=== PATIENT | female | born 1935 | race Asian ===

== ENCOUNTER 2017-09-10 00:31 | Day surgery (SDC) | payer MEDICARE, OTHER ==
[~2017-09-10 00:31] MED LIST: ABAT250V IV; ALEN70 PO; Aspir 8181 MG PO; CHOL10002 PO; FISH1000 PO; GABA300; HYDSUL200 PO; INFLECTRA100 MG IV; LISI20 PO; MULT50L; Micro-K10 MEQ; Triamterene W/1 EACH
[2018-03-07] MEDS ORDERED: HYDR1TAB94 PO (08:48)
== END 2017-09-10 11:11 | disposition home or self-care (01) ==
LOC: ATC 00:31
DX: M05.79 Rheumatoid arthritis with rheumatoid factor of multiple sites without organ or systems involvement (principal); R73.09 Other abnormal glucose; Z79.899 Other long term (current) drug therapy
CPT/HCPCS: 96413; 96415; J7050; Q5102-ZB

== ENCOUNTER 2017-10-22 00:17 | Day surgery (SDC) | payer MEDICARE, OTHER ==
[2017-10-22 09:16] LABS: BASOPHILS ABSOLUTE AUTO 0.03 K/mm3 (0.00-0.23); BASOPHILS PERCENT AUTO 1 % (0-2); EOSINOPHILS ABSOLUTE AUTO 0.01 K/mm3 (0.00-0.68); EOSINOPHILS PERCENT AUTO 0 % (0-6); Hematocrit 40.8 % (33.0-51.0); Hemoglobin 13.2 g/dL (11.5-16.0); IMMATURE GRAN ABSOLUTE AUTO 0.02 K/mm3 (0.00-0.10); IMMATURE GRAN PERCENT AUTO 1 % (0-1); LYMPHOCYTES ABSOLUTE AUTO 1.67 K/mm3 (0.84-5.20); LYMPHOCYTES PERCENT AUTO 40 % (21-46); MONOCYTES PERCENT AUTO 10 % (4-13); Mean Corpuscular HGB Conc 32.4 g/dL (31.5-36.5); Mean Corpuscular Volume 93 fL (80-100); Mean Platelet Volume 10.4 fL (9.1-12.4); NEUTROPHILS ABSOLUTE AUTO 2.03 K/mm3 (1.96-9.15); NEUTROPHILS PERCENT AUTO 49 % (41-73); Platelet Count 143 K/mm3 (150-400); RDW Coefficient Variation 14.4 % (11.7-14.2); White Blood Cell Count 4.16 K/mm3 (4.00-11.30)
[2017-10-22 09:46] LABS: Albumin, Blood 3.6 g/dL (3.4-5.0); Bilirubin, Total 0.5 mg/dL (0.1-1.0); Bun/Creatinine Ratio 14.8 (12.0-20.0); Calcium, Blood 8.6 mg/dL (8.5-10.1); Creatinine, Blood 1.28 mg/dL (0.40-1.00); Globulin, Blood 3.7 g/dL (2.2-4.0); Potassium, Blood 3.9 mmol/L (3.5-5.5); Total Protein, Blood 7.3 g/dL (6.4-8.2)
[2018-03-07] MEDS ORDERED: HYDR1TAB94 PO (08:48)
== END 2017-10-22 11:42 | disposition home or self-care (01) ==
LOC: ATC 00:17
PROVIDERS: Internal Medicine Rheumatology
DX: M05.79 Rheumatoid arthritis with rheumatoid factor of multiple sites without organ or systems involvement (principal)
CPT/HCPCS: 80053; 85025; 96413; 96415; J7050; Q5102-ZB

== ENCOUNTER 2017-12-12 01:13 | Day surgery (SDC) | payer MEDICARE, OTHER | END 2017-12-12 11:06 | disposition home or self-care (01) | LOC: ATC 01:13 | DX: M05.79 Rheumatoid arthritis with rheumatoid factor of multiple sites without organ or systems involvement (principal) | CPT/HCPCS: 96413; 96415; J7050; Q5103 ==

== ENCOUNTER 2018-04-19 00:30 | Day surgery (SDC) | payer MEDICARE, OTHER ==
[~2018-04-19 00:30] MED LIST changes: +HYDR1TAB94 PO
== END 2018-04-19 11:21 | disposition home or self-care (01) ==
LOC: ATC 00:30
DX: M05.79 Rheumatoid arthritis with rheumatoid factor of multiple sites without organ or systems involvement (principal)
CPT/HCPCS: 96413; 96415; J7050; Q5103

== ENCOUNTER 2018-05-31 00:20 | Day surgery (SDC) | payer MEDICARE, OTHER ==
[2018-05-31 09:09] LABS: BASOPHILS ABSOLUTE AUTO 0.02 K/mm3 (0.00-0.23); BASOPHILS PERCENT AUTO 1 % (0-2); EOSINOPHILS ABSOLUTE AUTO 0.15 K/mm3 (0.00-0.68); EOSINOPHILS PERCENT AUTO 4 % (0-6); Hematocrit 39.3 % (33.0-51.0); IMMATURE GRAN ABSOLUTE AUTO 0.03 K/mm3 (0.00-0.10); IMMATURE GRAN PERCENT AUTO 1 % (0-1); LYMPHOCYTES ABSOLUTE AUTO 1.63 K/mm3 (0.84-5.20); LYMPHOCYTES PERCENT AUTO 39 % (21-46); MONOCYTES ABSOLUTE AUTO 0.52 K/mm3 (0.16-1.47); MONOCYTES PERCENT AUTO 12 % (4-13); Mean Corpuscular HGB 30.7 pg (26.0-34.0); Mean Corpuscular HGB Conc 33.1 g/dL (31.5-36.5); Mean Corpuscular Volume 93 fL (80-100); Mean Platelet Volume 10.4 fL (9.1-12.4); NEUTROPHILS ABSOLUTE AUTO 1.87 K/mm3 (1.96-9.15); NEUTROPHILS PERCENT AUTO 44 % (41-73); Platelet Count 156 K/mm3 (150-400); RDW Coefficient Variation 13.4 % (11.7-14.2); RDW Standard Deviation 45.9 fL (35.1-46.3); Red Blood Cell Count 4.24 M/mm3 (3.80-5.20); White Blood Cell Count 4.22 K/mm3 (4.00-11.30)
[2018-05-31 09:56] LABS: Albumin, Blood 3.5 g/dL (3.4-5.0); Bilirubin, Total 0.6 mg/dL (0.1-1.0); Bun/Creatinine Ratio 13.2 (12.0-20.0); Calcium, Blood 8.3 mg/dL (8.5-10.1); Creatinine, Blood 1.36 mg/dL (0.40-1.00); Globulin, Blood 3.5 g/dL (2.2-4.0); Potassium, Blood 4.2 mmol/L (3.5-5.5)
== END 2018-05-31 11:07 | disposition home or self-care (01) ==
LOC: ATC 00:20
PROVIDERS: Internal Medicine Rheumatology
DX: M05.79 Rheumatoid arthritis with rheumatoid factor of multiple sites without organ or systems involvement (principal)
CPT/HCPCS: 80053; 85025; 96413; 96415; J7050; Q5103

== ENCOUNTER 2018-07-05 01:10 | Day surgery (SDC) | payer MEDICARE, OTHER | END 2018-07-05 11:04 | disposition home or self-care (01) | LOC: ATC 01:10 | DX: M05.79 Rheumatoid arthritis with rheumatoid factor of multiple sites without organ or systems involvement (principal) | CPT/HCPCS: 96413; 96415; J7050; Q5103 ==

== ENCOUNTER 2018-09-11 00:15 | Day surgery (SDC) | payer MEDICARE, OTHER ==
[~2018-09-11 00:15] MED LIST changes: -CHOL10002 PO; +D3-20002000 UNIT PO; +FISH OIL 1,0001 EAC1 PO; -FISH1000 PO
== END 2018-09-11 11:09 | disposition home or self-care (01) ==
LOC: ATC 00:15
DX: M06.9 Rheumatoid arthritis, unspecified (principal); Z79.899 Other long term (current) drug therapy
CPT/HCPCS: 96413; 96415; J7050; Q5103

== ENCOUNTER 2018-10-09 00:06 | Day surgery (SDC) | payer MEDICARE, OTHER | END 2018-10-09 11:46 | disposition home or self-care (01) | LOC: ATC 00:06 | DX: M05.79 Rheumatoid arthritis with rheumatoid factor of multiple sites without organ or systems involvement (principal); Z79.82 Long term (current) use of aspirin; Z79.899 Other long term (current) drug therapy; E78.5 Hyperlipidemia, unspecified | CPT/HCPCS: 96413; 96415; J7050; Q5103 ==

== ENCOUNTER 2018-10-25 09:54 | Inpatient (IN) | payer MEDICARE, OTHER ==
[~2018-10-25] VITALS: Ht 154.9 cm; Wt 53.4 kg
[~2018-10-25 09:54] MED LIST changes: -Acetaminophen-1 EAC1 PO; -Amoxicillin500 M1; -BUME2 PO; -GABA300 PO; -HYDR1TAB94; -Hydromet Syrup473 ML PO; -INFLECTRA100 MG; -LORA.5 PO; -METO25ER PO; -MIRT15 PO; -Micro-K10 MEQ PO; -Once Daily1 EACH PO; -PREG50 PO
[2018-10-25] MEDS ORDERED: Amoxicillin500 M1 (11:34)
[2018-10-25] MEDS ORDERED: Acetaminophen-1 EAC1 PO (11:34)
[2018-10-25] MEDS ORDERED: GABA300 PO (11:35)
[2018-10-25] MEDS ORDERED: Hydromet Syrup473 ML PO (11:35)
[2018-10-25] MEDS ORDERED: INFLECTRA100 MG (11:36)
[2018-10-25] MEDS ORDERED: PREG50 PO (11:37)
[2018-10-25 15:33] LABS: Bun/Creatinine Ratio 33.9 (12.0-20.0); Calcium, Blood 8.9 mg/dL (8.5-10.1); Creatinine, Blood 1.12 mg/dL (0.40-1.00); Potassium, Blood 4.5 mmol/L (3.5-5.5)
--- NOTE | 2018-10-25 17:30 | NUR ---
PT ARRIVED TO PCU 9 VIA GURNEY, SHE IS ABLET TO STAND AND TRANSFER TO BED EASILY. A/OX3, LUNGS ARE CLEAR IN UPPER TURNER, VERY DIM IN RIGHT BASE, SLIGHTLY DIM IN LEFT BASE, RESP EVEN AND UNLABORD, SATS ARE IN THE HIGH 90'S, SHE HAS A DRY HACKING COUGH, HRR, TELE IN PLACE RUNNIGN SR WITH LOUD MURMUR, 3+ EDEMA NOTED TO B/L LE, PPP FAINT, CAP REFILL <3SEC, VS STABLE, AFEBRILE, IV SITE TO RAC, SITE IS CLEAR AND PATENT, BTX4, ABD FLAT SOFT NONTENDER, VOIDS WITHOUT DIFF, SKIN C/W/D, MAEW, GERALD, CALL LIGHT IN REACH. ORIENTED TO ROOM LAYOUT CALL SYSTEM, CALL LIGHT IN REACH.
--- NOTE | 2018-10-25 19:45 | NUR ---
PM NOTE. ASSUMED CARE OF PT APROX 1900, PT IS A&O AND SBA IN THE ROOM. PT WAS ADMITTED DUE TO NEW ONSET CHF. THIS RN WAS NOTIFED THAT PT HAD CONVERTED FROM NSR TO AFIB IN THE 110-140'S. TELE INTACT, AFIB, PT'S BP 102/67. PT HAS 3+ PITTING EDEMA TO THE BLE. L/S CLEAR IN THE UPPER LOBES BUT FINE CRACKELS ARE HEARD IN THE RIGHT MID AND BILATERAL BASES. PT HAS OCC NON-PRODUCTIVE, DRY COUGH. PT O2 STATS ARE >90% ON RA. PT'S BT PRESENT AND HYPOACTIVE ABD IS SOFT AND NONTENDER TO PALP. CALL LIGHT IN REACH, BED IS LOCKED AND LOW WILL CONTINUE TO MONITOR.
--- NOTE | 2018-10-25 22:47 | NUR ---
PT UPDATE... PROVIDER WAS CALLED DUE APPARENT NEW ONSET AFIB. ORDERS WERE OBTAINED.
[2018-10-26 04:26] LABS: Albumin, Blood 3.3 g/dL (3.4-5.0); Anion Gap 13 mmol/L (6-16); Blood Urea Nitrogen 40 mg/dL (8-24); Bun/Creatinine Ratio 28.6 (12.0-20.0); CO2, Blood 23 mmol/L (21-32); Calcium, Blood 8.7 mg/dL (8.5-10.1); Chloride, Blood 96 mmol/L (98-108); Glomerular Filtration Rate 38 (60-); Glucose, Blood 109 mg/dL (70-99); Phosphorus, Blood 4.7 mg/dL (2.5-4.9); Potassium, Blood 3.8 mmol/L (3.5-5.5); Sodium, Blood 132 mmol/L (136-145)
--- NOTE | 2018-10-26 06:28 | NUR ---
SHIFT SUMMARY. NO ACUTE CHANGES NOTED SINCE PRIOR NOTES, PT IS STILL IN AFIB IN THE 100'S-110'S. PT DENIES CHEST PAIN PRESSURE, SOB OR N/V. PT STILL HAS DRY, NONPRODUCTIVE COUGH. PT CALL APROP. CALL LIGHT IN REACH, BED IS LOCKED AND LOW WILL CONTINUE TO MONITOR.
--- NOTE | 2018-10-26 08:02 | NUR ---
pt laying in bed awake a/ox3, pleasant and cooperative with care, follows commands well, denies pain and sob, states she feels good. she did convert to afib last night early in the night. rate in the 90's at this time. lungs are clear in upper brasher, dim in mid field, and bases, with some fine crackles in bases, resp even and unlabored, no cough noted, hrirr, loud murmur noted, 3+ pitting edema noted to b/l le, pp faint, cap refill <3sec, vs stable, afebrile, iv site is clear and patent, btx4, abd flat soft nontender, voids without diff, skin c/w/d, maew, antonieta, call light in reach. went down for cxray via wheelchair this am.
--- NOTE | 2018-10-26 13:30 | NUR ---
Dr. Salcido spoke with pt and her spouce about need for valve replacement, pt became very emotionally upset with news. attempted to offer encouragment, but she put her hands over her face. no further changes. call light in reach.
--- NOTE | 2018-10-26 18:45 | NUR ---
pt resting in bed after sitting in the chair for a few hrs, her spouce is in room, no further changes, she is in better spirits this evening. call light in reach.
--- NOTE | 2018-10-26 19:37 | NUR ---
PM NOTE. ASSUMED CARE OF PT APROX 1900, PT IS A&O AND IND/SBA IN THE ROOM. PT WAS ADMITTED FOR NEW ONSET CHF, PT WAS TOLD BY CREATIVE INTERN TODAY THAT SHE IS GOING TO NEED A VALVE REPLACED, PT AND WERE VERY EMOTIONAL ABOUT THIS INFORMATION. THIS RN PROVIDED THERAPUTIC COMMUNICATION AND EDUCATION ABOUT THIS TOPIC. PT TOLD THIS RN THAT THIS NEW DEVELOPMENT HAS CAUSED HER SEVERE EMOTIONAL STRESS AND SHE HAS DEVELOPED DIARRHEA, PT STATES THIS IS NORMAL FOR HER DURING TIMES OF HIGH STRESS. TELE INTACT, NSR IN THE 60'S PER RADAR SYSTEMS ENGINEER, PT'S BP 102/65. PT HAS 3+ EDEMA TO HER RLE W/FAINT PEDAL PULSE AND 2+ TO HER LLE. PT L/S: FINE CRACKELS TO RIGHT UPPER,MID AND LOWER LOBE AND IN THE LEFT LOWER LOBE, LEFT UPPER LOBE IS CLEAR. PT IS >90% ON RA W/DRY, NONPRODUCTIVE COUGH. BT PRESENT AND HYPERACTIVE, ABD IS SOFT AND NONTENDER TO PALP. CALL LIGHT IN REACH, BED IS LOCKED AND LOW WILL CONTINUE TO MONITOR.
--- NOTE | 2018-10-27 06:28 | NUR ---
SHIFT SUMMARY. AT 0052 PT CONVERTED FROM NSR TO AFIB 100'S TO 120'S, AT 0420 PT CONVERTED BACK TO NSR. PT WAS NOT SYMPTOMATIC DURING THIS TIME. PT WAS GIVEN 1 DOSE OF IMMODIUM FOR FREQUENT DIARRHEA WITH GOOD RESULTS, PT STATES THAT THE DIARREAH IS DUE TO STRESS AND A HIGH EMOTIONAL STATE DUE TO RECENT NEWS OF A NEEDED VALVE REPLACEMENT. PT'S VS HAVE BEEN STABLE T/O SHIFT. NO OTHER ACUTE CHANGES NOTED. CALL LIGHT IN REACH, BED IS LOCKED AND LOW WILL CONTINUE TO MONITOR UNTIL REPORT IS GIVEN TO ONCOMING RN.
[2018-10-27 08:16] LABS: Bun/Creatinine Ratio 31.3 (12.0-20.0); Calcium, Blood 8.3 mg/dL (8.5-10.1); Creatinine, Blood 1.5 mg/dL (0.40-1.00); Potassium, Blood 3.6 mmol/L (3.5-5.5)
--- NOTE | 2018-10-27 10:01 | NUR ---
AFIB PT ARRYTHMIA CHANGED TO AFIB. PT HAS STANDING DISCHARGE HOME ORDERS. CALLED DR BRITT CELL PHONE AND LEFT A MESSAGE ASKING FOR CLARIFICATION ON CONTINUED DISCHARGE HOME. CONTINUE POT.
--- NOTE | 2018-10-27 10:56 | NUR ---
DR EDDI BRITT REQUESTED A CONSULT FROM DR MONTAGUE FOR ANTI COAGULATION AND ARRYTHMIA. PAGED DR ASUTIN. SHE TALKED WITH DR GALDAMEZ WHO WAS NEXT TO HER. ORDER FOR XARELTO AND AMIODORONE RECEIVED. CONTINUE POT.
--- NOTE | 2018-10-27 18:44 | NUR ---
EVENING NOTE PT ALERT AND VERY ANXIOUS ABOUT TOMORROW ANGIOGRAM. PT REQUESTED A SLEEPING PILL. CALL SCHEDULE SAYS DR PERALTA IS ON. CALLED THE ANSWERING SERVICE THEY STATED IT IS THE HOSPITALIST ON. WAITING UNTIL 1899 TO CALL. PT HAS NEVER USED A SLEEPING PILL. LEFT FA IV INFILTRATED. REMOVED. RESTARTED PER ULTRA SOUND RIGHT UE. CALLED PHARMACY TO ALERT THEM OF STOPPING THE HEPARIN GTT. RECALLED TO LET TOO [facility] KNOW OF RESTART. NO NEW ORDERS RECEIVED. RESUME AT PREVIOUS RATE/DOSE. CONTINUE POT.
--- NOTE | 2018-10-27 20:08 | NUR ---
PM NOTE. ASSUMED CARE OF PT APROX 1900, PT IS A&O AND SBA DUE TO IV POLE. PT IS SCHEDULED TO HAVE AN ANGIO IN THE AM AND IS TO BE NPO AFTER MIDNIGHT. PT IS VERY ANXIOUS ABOUT THIS PROCEDURE, PT STATES SHE IS AFRAID NOT "NOT WAKING UP AND DYING ON THE TABLE." TELE INTACT, NSR IN THE 60'S PER FITTER TACKER, PT HAS BEEN FILLPING IN AND OUT OF AFIB MOST OF TODAY BUT HAS BEEN NSR SINCE 182. PT'S BP 104/60. PT HAS 2+ PITTING EDEMA TO THE BLE. PT'S L/S HAVE IMPROVED SINCE LAST NOC SHIFT BUT STILL HAVE FINE CRACKELS IN THE RIGHT MID AND LOWER LOBES. BT PRESENT AND HYPERACTIVE, ABD IS SOFT AND NONTENDER TO PALP. CALL LIGHT IN REACH, BED IS LOCKED AND LOW WILL CONTINUE TO MONITOR.
--- NOTE | 2018-10-27 22:46 | NUR ---
PT UPDATE... PT CALLED AND STATED SHE WAS VERY NAUSEOUS, PT HAD A RECENT LAB DRAW THAT WAS VERY PAINFUL TO THE PT AND SHE FEELS THIS WAS THE CAUSE. PROVIDER WAS CALLED AND ORDERS OBTAINED, PT WAS MEDICATED PER ORDERS. WILL MONITOR.
--- NOTE | 2018-10-28 01:30 | NUR ---
PT UPDATE... AT 0005 PT'S BP WAS 73/41 W/HR OF 54. PT WAS LETHARGIC AND HARD TO WAKE UP. PT HAD RECEIVED METOPROLOL 25 MG, AND 7.5 MG OF RESTORIL AT 2330. A 250ML BOLUS WAS GIVEN, PT'S BP AT 0050 AFTER BOLUS WAS 77/43 W/HR OF 51. PROVIDER WAS CALLED AND ORDERS OBTAINED FOR ANOTHER 250ML BOLUS. AFTER THE 2ND 250ML BOLUS THE PT'S BP WAS 86/54 W/HR OF 53. AT 0145 PT'S HR WAS 76/51 W/ HR OF 58 AND RR OF 28 AND PT WAS LETHARGIC AND CONFUSED. PROVIDER WAS CALLED AND ORDERS WERE OBTAINED TO TRANSFER TO ICU. 5 MINS AFTER PROVIDER GAVE ORDERS TO TRANSFER TO ICU PT WOKE UP SPONTANIOUSLY, SHE WAS CONFUSED, SCARED AND CRYING OUT, PT WAS ORIENTED ONLY TO SELF. THERAPUTIC COMMUNICATION WAS PROVIDED TO PT AND SHE CALMED DOWN. VS WERE DONE AT THIS TIME: 97/58, HR 59, RR 23 TEMP 97.7. PROVIDER WAS CALLED AND UPDATED, IT WAS DECIDED THAT THE PT SHOULD STAY PCU STATUS WITH CLOSE MONITORING.
[2018-10-28 05:13] LABS: BASOPHILS ABSOLUTE AUTO 0.03 K/mm3 (0.00-0.23); BASOPHILS PERCENT AUTO 1 % (0-2); EOSINOPHILS ABSOLUTE AUTO 0.09 K/mm3 (0.00-0.68); EOSINOPHILS PERCENT AUTO 2 % (0-6); Hematocrit 37.9 % (33.0-51.0); Hemoglobin 12.6 g/dL (11.5-16.0); IMMATURE GRAN ABSOLUTE AUTO 0.03 K/mm3 (0.00-0.10); IMMATURE GRAN PERCENT AUTO 1 % (0-1); LYMPHOCYTES ABSOLUTE AUTO 1.54 K/mm3 (0.84-5.20); LYMPHOCYTES PERCENT AUTO 26 % (21-46); MONOCYTES ABSOLUTE AUTO 0.66 K/mm3 (0.16-1.47); MONOCYTES PERCENT AUTO 11 % (4-13); Mean Corpuscular HGB 31.1 pg (26.0-34.0); Mean Corpuscular HGB Conc 33.2 g/dL (31.5-36.5); Mean Platelet Volume 10.2 fL (9.1-12.4); NEUTROPHILS ABSOLUTE AUTO 3.48 K/mm3 (1.96-9.15); NEUTROPHILS PERCENT AUTO 60 % (41-73); Platelet Count 260 K/mm3 (150-400); RDW Coefficient Variation 13.9 % (11.7-14.2); RDW Standard Deviation 47.8 fL (35.1-46.3); Red Blood Cell Count 4.05 M/mm3 (3.80-5.20); White Blood Cell Count 5.83 K/mm3 (4.00-11.30)
[2018-10-28 05:17] LABS: Mean Corpuscular Volume 94 fL (80-100)
[2018-10-28 05:39] LABS: Albumin, Blood 3.4 g/dL (3.4-5.0); Anion Gap 14 mmol/L (6-16); Blood Urea Nitrogen 52 mg/dL (8-24); Bun/Creatinine Ratio 29.4 (12.0-20.0); CO2, Blood 23 mmol/L (21-32); Calcium, Blood 8.5 mg/dL (8.5-10.1); Chloride, Blood 98 mmol/L (98-108); Creatinine, Blood 1.77 mg/dL (0.40-1.00); Glomerular Filtration Rate 28 (60-); Glucose, Blood 111 mg/dL (70-99); Phosphorus, Blood 5.7 mg/dL (2.5-4.9); Potassium, Blood 3.6 mmol/L (3.5-5.5); Sodium, Blood 135 mmol/L (136-145)
[2018-10-28 05:41] LABS: Anion Gap 13 mmol/L (6-16); Blood Urea Nitrogen 52 mg/dL (8-24); Bun/Creatinine Ratio 29.5 (12.0-20.0); CHOL/HDL RATIO 2.4; CO2, Blood 23 mmol/L (21-32); Calcium, Blood 8.5 mg/dL (8.5-10.1); Chloride, Blood 98 mmol/L (98-108); Cholesterol 127 mg/dL (50-200); Creatinine, Blood 1.76 mg/dL (0.40-1.00); Glomerular Filtration Rate 28 (60-); Glucose, Blood 107 mg/dL (70-99); HDL Cholesterol 53 mg/dL (>39); LDL/HDL RATIO 1.1; Low Density Lipoprotein Chol 59 mg/dL (0-110); Potassium, Blood 3.6 mmol/L (3.5-5.5); Sodium, Blood 134 mmol/L (136-145); Triglycerides 77 mg/dL (30-160); Very Low Density Lipoprot Chol 15 mg/dL (6-32)
--- NOTE | 2018-10-28 05:47 | NUR ---
SHIFT SUMMARY. NO ACUTE CHANGES NOTED SINCE PREVIOUS NOTES. PT'S MENTATION HAS CLEARED AND IS NOT CONFUSED AT THIS TIME. PT STILL HAS HEPARIN GTT AT 15 U/KG/HR AND 16.5 MLS/HR WITH A DOSE WT OF 55 KG. PT DENIES ANY CHEST PAIN/PRESSURE, N/V OR SOB. WILL CONTINUE TO MONITOR UNTIL REPORT IS GIVEN TO ONCOMING RN. BED ALARM IS ON.
--- NOTE | 2018-10-28 11:53 | NUR ---
Am note Pt resting. angiogram delayed d/t facility being on back up power. Pt very scared and anxious. She has been making statements about "giving up." Dr De La Vega called [facility] after canceling this am Angiogram. Reordred heparin gtt and planning to do the angiogram tomorrow. Talked with pt . Lollyf relates that pt has not been eating well at home for several months. No real interest in anything. He denied depression. Continue pot.
[2018-10-29 04:11] LABS: BASOPHILS ABSOLUTE AUTO 0.02 K/mm3 (0.00-0.23); BASOPHILS PERCENT AUTO 0 % (0-2); EOSINOPHILS ABSOLUTE AUTO 0.04 K/mm3 (0.00-0.68); EOSINOPHILS PERCENT AUTO 1 % (0-6); Hematocrit 37.2 % (33.0-51.0); Hemoglobin 12.5 g/dL (11.5-16.0); IMMATURE GRAN ABSOLUTE AUTO 0.04 K/mm3 (0.00-0.10); IMMATURE GRAN PERCENT AUTO 1 % (0-1); LYMPHOCYTES ABSOLUTE AUTO 1.44 K/mm3 (0.84-5.20); LYMPHOCYTES PERCENT AUTO 24 % (21-46); MONOCYTES ABSOLUTE AUTO 0.63 K/mm3 (0.16-1.47); MONOCYTES PERCENT AUTO 10 % (4-13); Mean Corpuscular HGB 30.9 pg (26.0-34.0); Mean Corpuscular HGB Conc 33.6 g/dL (31.5-36.5); Mean Corpuscular Volume 92 fL (80-100); Mean Platelet Volume 10.4 fL (9.1-12.4); NEUTROPHILS ABSOLUTE AUTO 3.86 K/mm3 (1.96-9.15); NEUTROPHILS PERCENT AUTO 64 % (41-73); Platelet Count 248 K/mm3 (150-400); RDW Standard Deviation 46.5 fL (35.1-46.3); Red Blood Cell Count 4.05 M/mm3 (3.80-5.20); White Blood Cell Count 6.03 K/mm3 (4.00-11.30)
[2018-10-29 05:02] LABS: Albumin, Blood 3.4 g/dL (3.4-5.0); Anion Gap 14 mmol/L (6-16); Blood Urea Nitrogen 60 mg/dL (8-24); Bun/Creatinine Ratio 30.8 (12.0-20.0); CO2, Blood 21 mmol/L (21-32); Calcium, Blood 8.6 mg/dL (8.5-10.1); Chloride, Blood 98 mmol/L (98-108); Creatinine, Blood 1.95 mg/dL (0.40-1.00); Glomerular Filtration Rate 25 (60-); Glucose, Blood 81 mg/dL (70-99); Phosphorus, Blood 6.4 mg/dL (2.5-4.9); Potassium, Blood 3.8 mmol/L (3.5-5.5); Sodium, Blood 133 mmol/L (136-145)
[2018-10-29 05:14] LABS: Bun/Creatinine Ratio 30.8 (12.0-20.0); Creatinine, Blood 1.95 mg/dL (0.40-1.00); Potassium, Blood 3.8 mmol/L (3.5-5.5)
[2018-10-29 05:15] LABS: Calcium, Blood 8.6 mg/dL (8.5-10.1)
--- NOTE | 2018-10-29 05:22 | NUR ---
SHIFT SUMMARY PT A&O X4, INDEPENDENT IN ROOM. PT C/O NAUSEA THAT SHES STATES RELATION TO "NERVES" D/T UPCOMING CATH PROCEDURE. PT PROVIDED W/ COMFORT AND ZOFRAN PER PT REQUEST & EMAR ORDERS. LUNG SOUNDS CLEAR, DIM IN BASES. SPO2 > 92% ON RA. MONITOR SHOWS INTERMITTENT AFIB/NSR T/O SHIFT W/ HR 60'S-90'S. PT HAS BEEN NPO AFTER MIDNIGHT FOR POSSIBLE CATH TODAY. HEPARIN GTT INFUSING PER ORDERS. WILL CONTINUE TO MONITOR AND PROVIDE CARE UNTIL REPORT OFF TO DAY SHIFT RN.
--- NOTE | 2018-10-29 07:45 | NUR ---
INITIAL ASSESSMENT: Pt sitting up in bed talking with physician. Pt tearful at times and seems depressed. States "I don't want to live like this". Physicain and RN provided encouragement, stating with treatment she would not be living like this. Pt at bedside and also tearful at times. LS diminished in bases, HR irregular with prominant murmur heard. BT positive. PUlses palp. Pt denies CP, SOB or needs. Call light in reach. Will monitor.
--- NOTE | 2018-10-29 17:48 | NUR ---
SHIFT SUMMARY: Pt appears to be sleeping comfortably at this time. at bedside. Pt has seemed depressed and anxious about her condition this shift. Provided verbal encouragement frequently throughout the shift. Pt stated "thank you for listening" at one point. Pt has been having diarrhea this shift, likely from stress (per pt and her ). Treated with imodium. Pt has had very little intake dispite encouragement to eat. Pt seems to be having dry heaves any time she needs to take medications or trys to eat. She was medicated with zofran per orders. Recieved her NS this AM and labs ordered for tomorrow. NPO after midnight. WIll report to night RN.
--- NOTE | 2018-10-29 19:30 | NUR ---
ASSUMED CARE PT RESTING IN ROOM COMFORTABLY. PT DAY SHIFT PT HAS BEEN DEPRESSED WITH TEARFUL AFFECT T/O DAY RELATED TO CURRENT ILLNESS. DAY SHIFT REPORTS PT HAS BEEN TEARFUL AND EXPRESSING FEAR AT DIAGNOSIS. PT DENIES ANY PAIN BUT REPORTS NAUSEA AND DIARRHEA. PT HAS BEEN MEDICATED FOR DIARRHEA PRIOR TO SHIFT CHANGE. WILL MEDICATE FOR NAUSEA. PT REPORTS NOT ABLE TO VOMIT, BUT HAS DRY HEAVES. PER DAY SHIFT PT HAS NOT HAD MUCH OF AN APPETITE LAST 2 DAYS. PT TO BE NPO AFTER MIDNIGHT FOR ANGIO IN THE AM IF RENAL FUNCTION IMPROVES. SPOUSE AT BEDSIDE. CALL LIGHT IN REACH.
--- NOTE | 2018-10-29 20:37 | NUR ---
PHARMACY CALLED SPOKE WITH PHARMACIST ABOUT NEW APTT VALUE OF 106.4. NO ORDERS FOR TITRATION RECEIVED AT THIS TIME. HUMAN RESOURCES TEMP NOTIFIED OF CRITICAL VALUE WELL.
[2018-10-30 04:16] LABS: BASOPHILS ABSOLUTE AUTO 0.01 K/mm3 (0.00-0.23); BASOPHILS PERCENT AUTO 0 % (0-2); EOSINOPHILS PERCENT AUTO 0 % (0-6); Hematocrit 36.8 % (33.0-51.0); Hemoglobin 12.3 g/dL (11.5-16.0); IMMATURE GRAN ABSOLUTE AUTO 0.04 K/mm3 (0.00-0.10); IMMATURE GRAN PERCENT AUTO 1 % (0-1); LYMPHOCYTES PERCENT AUTO 23 % (21-46); MONOCYTES ABSOLUTE AUTO 0.59 K/mm3 (0.16-1.47); MONOCYTES PERCENT AUTO 10 % (4-13); Mean Corpuscular HGB 31.2 pg (26.0-34.0); Mean Corpuscular HGB Conc 33.4 g/dL (31.5-36.5); Mean Corpuscular Volume 93 fL (80-100); Mean Platelet Volume 10.5 fL (9.1-12.4); NEUTROPHILS ABSOLUTE AUTO 4.02 K/mm3 (1.96-9.15); NEUTROPHILS PERCENT AUTO 66 % (41-73); Platelet Count 204 K/mm3 (150-400); RDW Coefficient Variation 14.1 % (11.7-14.2); RDW Standard Deviation 47.8 fL (35.1-46.3); Red Blood Cell Count 3.94 M/mm3 (3.80-5.20); White Blood Cell Count 6.06 K/mm3 (4.00-11.30)
[2018-10-30 04:35] LABS: Albumin, Blood 3.3 g/dL (3.4-5.0); Anion Gap 13 mmol/L (6-16); Blood Urea Nitrogen 66 mg/dL (8-24); Bun/Creatinine Ratio 29.7 (12.0-20.0); CO2, Blood 22 mmol/L (21-32); Calcium, Blood 8.3 mg/dL (8.5-10.1); Chloride, Blood 100 mmol/L (98-108); Creatinine, Blood 2.22 mg/dL (0.40-1.00); Glomerular Filtration Rate 22 (60-); Glucose, Blood 80 mg/dL (70-99); Magnesium, Blood 2.6 mg/dL (1.6-2.4); Phosphorus, Blood 5.9 mg/dL (2.5-4.9); Potassium, Blood 4.2 mmol/L (3.5-5.5); Sodium, Blood 135 mmol/L (136-145)
[2018-10-30 04:36] LABS: Bun/Creatinine Ratio 29.7 (12.0-20.0); Calcium, Blood 8.4 mg/dL (8.5-10.1); Creatinine, Blood 2.22 mg/dL (0.40-1.00); Potassium, Blood 4.2 mmol/L (3.5-5.5)
--- NOTE | 2018-10-30 05:38 | NUR ---
SHIFT SUMMARY PT RESTING IN ROOM COMFORTABLY. NO ACUTE CHANGES IN STATUS OVERNIGHT. PT REMAINED NAUSEOUS AT TIMES. WAS ABLE TO SLEEP FOR SEVERAL HOURS AND SLEPT WELL. PT AFFECT MUCH IMPROVED THIS AM. PT IN ROOM SMILING AND CONVERSING WELL WITH STAFF. PT STILL REPORTS ANXIETY ABOUT ANGIO TODAY AND DIAGNOSIS. SPOUSE REMAINED IN ROOM T/O NIGHT. PT APPEARED TO BE MORE CALM WITH SPOUSE PRESENCE. CALL LIGHT IN REACH.
--- NOTE | 2018-10-30 07:30 | NUR ---
INITIAL ASSESSMENT: Pt resting in bed with at bedside. VSS. LS diminished in bases. BT positive. Pulses palp. HR reg at this time with prominant murmur heard. +2 edema in BLE. Pt seems to be more cheerful this am. Has a more positive attitude with less failure to thrive, however Pt states she still has nausea with dry heaves any time she eats something. Pt was informed that she is not going to have the angiogram today r/t her labs. Pt was tearful with this news but understood. Pt was encouraged to drink as much as she could. Changes made to medications to hopefully improve nausea. Call light in reach. Will continue to monitor.
--- NOTE | 2018-10-30 15:00 | NUR ---
update: Pt sitting up at edge of bed with at bedside. States that the Atavan she was given seems to have helped her stomach pain and her feeling better. Earlier Pt had called RN in because her stomach hurt and because she was very nauseous. At that time and Pt were tearful about how she was feeling, the ango being delayed, and her prognosis in general. Spoke with physician and order obtained for a low dose of ativan. Pt tolerated it very well and seems much more comfortable.
--- NOTE | 2018-10-30 17:52 | NUR ---
shift summary: Pt sitting up at edge of bed at this time eating some dinner. Appitite seems to have improved slightly and Pt states that her ABD is less painful and her nausea has improved. Pt did doze for a few hours this afternoon after the low dose of ativan. Pt's VS have been stable this shift. LS have been clear. BT positive. HR has mostly been in NSR but she was in AFib for a couple hours this AM. No other changes. Pt denies other needs. at bedside. Stable at end of shift.
--- NOTE | 2018-10-30 19:40 | NUR ---
ASSUMED CARE PT SLEEPING IN ROOM COMFROTABLY. PER DAY SHIFT PT HAD NO ACUTE CHANGES SINCE PREVIOUS NIGHT. PT TO BE NPO AT MIDNIGHT FOR POSSIBLE ANGIO IN THE AM IF RENAL FUNCTION IMPROVES. PT CONTINUES TO APPEAR DEPRESSED W/ DIAGNOSIS, DAY RN REPORTED PT WAS TEARFUL AND ANXIOUS T/O DAY. PT RECEIVED NEW ORDER OF ATIVAN FOR ANXIETY, AND WAS ABLE TO SLEEP 3 HOURS, AND HAD REDUCED NAUSEA. PT WAS ABLE TO EAT HALF OF DINNER. PT AND SPOUSE CONCERNED ABOUT DOSE OF ATIVAN BEING TOO HIGH PT WAS HARD TO WAKE FOR DINNER. RESP EVEN UNLABORED ON RA. PT DENIES PAIN. SKIN PWD. CALL LIGHT IN REACH.
[2018-10-31 04:56] LABS: Albumin, Blood 3.4 g/dL (3.4-5.0); Albumin/Globulin Ratio 1.1 (0.8-1.8); Bilirubin, Total 0.6 mg/dL (0.1-1.0); Bun/Creatinine Ratio 30.7 (12.0-20.0); Calcium, Blood 8.5 mg/dL (8.5-10.1); Creatinine, Blood 2.38 mg/dL (0.40-1.00); Globulin, Blood 3.2 g/dL (2.2-4.0); Potassium, Blood 4.1 mmol/L (3.5-5.5); Total Protein, Blood 6.6 g/dL (6.4-8.2)
--- NOTE | 2018-10-31 05:11 | NUR ---
SHIFT SUMMARY PT SLEEPING IN ROOM COFORTABLY. NO ACUTE CHANGES IN STATUS T/O NIGHT. PT ONLY HAD ONE EPISODE OF NAUSEA. WAS MEDICATED PER EMAR. PT WAS ALSO MEDICATED FOR ANXIETY. PT THEN SLEPT WELL FOR SEVERAL HOURS. RESP EVEN UNLABORED ON RA. SPOUSE AT BEDSIDE. CALL LIGHT IN REACH.
--- NOTE | 2018-10-31 07:51 | NUR ---
pt sitting on the side of the bed awake a/ox3, pleasant and cooperative with care, follows commands well, seems depressed, denies pain, lungs are clear in upper brasher, dim in bases, resp even and unlabored, no cough noted, hrirr, tele in place running afib per monitor in the 70's, iv site to ronald is clear and patent, infusing heparin as ordered, 2-3+ edema noted to b/l le, cap refill <3sec, b/p in the 90's, btx4, abd flat soft nontender, voids without diff, skin c/w/d, maew, antonieta, call light in reach. spoke with cardiology, she wants to hold amio and metoprolol this am.
--- NOTE | 2018-10-31 13:30 | NUR ---
PT RESTING IN BED WITH EYES CLOSED, WAKES WHEN NURSE SPEAKS TO HER. DR. HOLT WAS IN TO SEE HER. ORDERED AN U/S OF ABD. WILL KEEP NPO AFTER LUNCH UNTIL THAT IS DONE. SPOUCE IN ROOM. CALL LIGHT IN REACH.
--- NOTE | 2018-10-31 18:52 | NUR ---
NO ACUTE CHANGES THIS SHIFT. WENT INTO NORMAL SINUS RHYTHM FOR A SHORT PERIOD OF TIME. CALL LIGHT IN REACH.
--- NOTE | 2018-10-31 19:40 | NUR ---
ASSUMED CARE PT RESTING IN ROOM COMFORTABLY WITH SPOUSE AT BEDSIDE. PER DAY SHIFT THERE WERE NO ACUTE CHANGES IN STATUS, AND PLAN FOR PT REMAINS THE SAME. UPON ASSESSMENT NO CHANGES WERE NOTED BY THIS RN FROM PREVIOUS DENTAL BILLING SPECIALIST. HEPARIN GTT RUNNING. PT TO BE NPO AFTER MIDNIGHT TO PREPARE FOR POSSIBLE ANGIO IN AM IF KIDNEY FUNCTION IMPROVES.
[2018-11-01 04:01] LABS: BASOPHILS ABSOLUTE AUTO 0.02 K/mm3 (0.00-0.23); BASOPHILS PERCENT AUTO 0 % (0-2); EOSINOPHILS ABSOLUTE AUTO 0.03 K/mm3 (0.00-0.68); EOSINOPHILS PERCENT AUTO 0 % (0-6); Hemoglobin 11.8 g/dL (11.5-16.0); IMMATURE GRAN ABSOLUTE AUTO 0.08 K/mm3 (0.00-0.10); IMMATURE GRAN PERCENT AUTO 1 % (0-1); LYMPHOCYTES ABSOLUTE AUTO 1.32 K/mm3 (0.84-5.20); LYMPHOCYTES PERCENT AUTO 16 % (21-46); MONOCYTES ABSOLUTE AUTO 0.76 K/mm3 (0.16-1.47); MONOCYTES PERCENT AUTO 10 % (4-13); Mean Corpuscular HGB 30.3 pg (26.0-34.0); Mean Corpuscular HGB Conc 32.8 g/dL (31.5-36.5); Mean Corpuscular Volume 92 fL (80-100); NEUTROPHILS ABSOLUTE AUTO 5.83 K/mm3 (1.96-9.15); NEUTROPHILS PERCENT AUTO 73 % (41-73); Platelet Count 154 K/mm3 (150-400); RDW Coefficient Variation 14.5 % (11.7-14.2); RDW Standard Deviation 47.2 fL (35.1-46.3); White Blood Cell Count 8.04 K/mm3 (4.00-11.30)
[2018-11-01 04:21] LABS: Bun/Creatinine Ratio 31.9 (12.0-20.0); Calcium, Blood 8.7 mg/dL (8.5-10.1); Creatinine, Blood 2.51 mg/dL (0.40-1.00); Magnesium, Blood 2.8 mg/dL (1.6-2.4); Potassium, Blood 4.3 mmol/L (3.5-5.5)
--- NOTE | 2018-11-01 05:52 | NUR ---
SHIFT SUMMARY PT SLEEPING IN ROOM COMFORTABLY WITH SPOUSE AT BEDSIDE. NO ACUTE CHANGES IN STATUS T/O NIGHT. PT SLEPT OFF AND ON. WITH ONLY ONE EPISODE OF NAUSEA EARLY IN THE NIGHT. PT WAS NPO AT MIDNIGHT TO PREPARE FOR A POSSIBLE ANGIO THIS AM. CALL LIGHT IN REACH.
[2018-11-01 06:57] LABS: Alanine Aminotransfer (ALT/SGP 221 U/L (12-78); Aspartate Aminotrans (AST/SGOT 262 U/L (12-37)
--- NOTE | 2018-11-01 12:58 | NUR ---
Spiritual care visit attempted. I entered patient's room and introduced myself and explained about the department I am from. Patient said that she is not interested in a visit and did not want to talk. I will remain available.
[2018-11-01 16:38] LABS: Bilirubin, Urine Neg (Neg); Blood, Urine 2+ (Neg); Glucose Qualitative, Urine Neg (Neg); Ketones, Urine Neg (Neg); Leukocyte Esterase, Urine 1+ (Neg); Nitrite, Urine Neg (Neg); Protein, Urine Neg (Neg); Urobilinogen, Urine NORM (Normal)
[2018-11-01 17:08] LABS: Appearance, Urine Clear (Clear); Color, Urine Yellow (P-Yellow)
[2018-11-01 17:19] LABS: Bacteria Many /hpf; Squamous Epithelial Cells Mod /hpf (Few)
--- NOTE | 2018-11-01 18:00 | NUR ---
SHIFT SUMMARY PT ALERT AND ORIENTED. VS STABLE. PT TEARFUL AT TIMES TODAY RELATED TO DIAGNOSIS. HEPARIN GTT DC'D TODAY. PT ABLE TO AMBULATE TO BATHROOM NEEDED WITH SBA. PT VERY WEAK. PT NAUSEOUS THIS SHIFT AND POOR APPETITE. PT ABLE TO EAT 40% OF DINNER WITHOUT NAUSEA THIS EVENING. EDEMA TO BLE UNCHANGED THIS SHIFT. AT THE BEDSIDE MOST OF SHIFT. NO OTHER CHANGES SINCE INITIAL ASSESSMENT. WILL CONTINUE TO MONITOR AND REPORT TO ONCOMING RN. CALL LIGHT IN REACH.
--- NOTE | 2018-11-01 22:49 | NUR ---
PCU NIGHTSHIFT ASSUMED CARE OF PT APPROX. 1900. PT A&O X4. ASSESSMENT COMPLETED. VITAL SIGNS STABLE. PT SITTING UP AT BEDSIDE. PT ABLE TO AMBULATE TO BATHROOM W/ SBA AND TOLERATED WELL. PT HAS BLE EDEMA. AND REPORTS FEELING NAUSEATED PRN NAUSEA MEDICATION GIVEN. BED IN LOW POSITION, CALL LIGHT IN REACH AND PT DENIES ANY NEEDS AT THIS TIME.
--- NOTE | 2018-11-02 05:51 | NUR ---
SHIFT SUMMARY PT PLESANT, COOPERATIVE AND USES CALL LIGHT APPROPRIATELY. PT REMAINS A&O X4. ASSESSMENT FINDINGS REMAIN UNCHANGES. VITAL SIGNS REMAIN STABLE. PT ABLE TO AMBULATE TO BATHROOM W/ SBA NEEDED AND TOLERATED WELL. AFTER REPORTING FEELING NAUSEATED AT THE BEINNING OF SHIFT PT DENIES THIS FOR THE REST OF THE SHIFT. PT REMAIN NPO SINCE MIDNIGHT IN HOPES FOR POSSIBLE ANGIO. TOMORROW. BED IN LOW POSITION, CALL LIGHT IN REACH AND PT DENIES ANY NEEDS AT THIS TIME. WILL CONTINUE TO MONITOR UNTIL HANDOFF TO DAYSHIFT RN.
[2018-11-02 06:33] LABS: BASOPHILS ABSOLUTE AUTO 0.01 K/mm3 (0.00-0.23); BASOPHILS PERCENT AUTO 0 % (0-2); EOSINOPHILS ABSOLUTE AUTO 0.01 K/mm3 (0.00-0.68); EOSINOPHILS PERCENT AUTO 0 % (0-6); Hemoglobin 12.5 g/dL (11.5-16.0); IMMATURE GRAN ABSOLUTE AUTO 0.09 K/mm3 (0.00-0.10); IMMATURE GRAN PERCENT AUTO 1 % (0-1); LYMPHOCYTES ABSOLUTE AUTO 0.89 K/mm3 (0.84-5.20); LYMPHOCYTES PERCENT AUTO 9 % (21-46); MONOCYTES ABSOLUTE AUTO 0.91 K/mm3 (0.16-1.47); MONOCYTES PERCENT AUTO 10 % (4-13); Mean Corpuscular HGB 31.8 pg (26.0-34.0); Mean Corpuscular HGB Conc 33.8 g/dL (31.5-36.5); Mean Corpuscular Volume 94 fL (80-100); Mean Platelet Volume 11.1 fL (9.1-12.4); NEUTROPHILS ABSOLUTE AUTO 7.66 K/mm3 (1.96-9.15); NEUTROPHILS PERCENT AUTO 80 % (41-73); Platelet Count 98 K/mm3 (150-400); RDW Coefficient Variation 14.9 % (11.7-14.2); RDW Standard Deviation 49.2 fL (35.1-46.3); Red Blood Cell Count 3.93 M/mm3 (3.80-5.20); White Blood Cell Count 9.57 K/mm3 (4.00-11.30)
[2018-11-02 06:41] LABS: Albumin, Blood 3.3 g/dL (3.4-5.0); Anion Gap 15 mmol/L (6-16); Blood Urea Nitrogen 81 mg/dL (8-24); Bun/Creatinine Ratio 36.7 (12.0-20.0); CO2, Blood 18 mmol/L (21-32); Calcium, Blood 8.9 mg/dL (8.5-10.1); Chloride, Blood 99 mmol/L (98-108); Creatinine, Blood 2.21 mg/dL (0.40-1.00); Glomerular Filtration Rate 23 (60-); Glucose, Blood 63 mg/dL (70-99); Phosphorus, Blood 5.1 mg/dL (2.5-4.9); Potassium, Blood 4.3 mmol/L (3.5-5.5); Sodium, Blood 132 mmol/L (136-145)
[2018-11-02 06:58] LABS: Albumin, Blood 3.5 g/dL (3.4-5.0); Albumin/Globulin Ratio 1.2 (0.8-1.8); Bilirubin, Total 0.7 mg/dL (0.1-1.0); Bun/Creatinine Ratio 36.9 (12.0-20.0); Creatinine, Blood 2.25 mg/dL (0.40-1.00); Globulin, Blood 2.9 g/dL (2.2-4.0); Potassium, Blood 4.4 mmol/L (3.5-5.5); Total Protein, Blood 6.4 g/dL (6.4-8.2)
--- NOTE | 2018-11-02 08:02 | NUR ---
AM NOTE. ASSUMED CARE OF PT APROX 0700, PT IS A&O AND SBA/IND IN THE ROOM. PT WAS ADMITTED DUE TO NEW ONSET CHF, PT'S KIDNEY FUNCTION AND LIVER FUNCTION ARE ALSO IMPAIRED AT THIS TIME. THIS AM CARDIOLOGY WAS IN THE ROOM AND NOTICED THE PT'S FINGERS ON HER RIGHT HAND WERE COLD AND WHITE, HER RADIAL PULSE WAS DECREASED AND HER NAIL BEDS WERE PURPLE. STAT ULTRA SOUND WAS ORDRED, WAITING FOR RESULTS. TELE INTACT, AFIB IN THE 80'S-100'S PER TAILINGS MAN, PT'S BP 118/62. 3+ EDEMA NOTED TO THE PT'S BLE. L/S CLEAR T/O AND DIM IN THE BASES. BT PRESENT AND HYPERACITVE, ABD IS SOFT AND NONTENDER TO PALP. PT COMPLAINS OF DIARRHEA AND NAUSEA W/"DRY HEAVES". PT MEDICATED PER EMAR. PT'S IS AT THE BEDSIDE. CALL LIGHT IN REACH,BED IS LOCKED AND LOW WILL CONTINUE TO MONITOR.
--- NOTE | 2018-11-03 00:42 | NUR ---
PCU NIGHTSHIFT ASSUMED CARE OF PT APPROX. 1900. PT A&O X4. ASSESSMENT COMPLETED. VITAL SIGNS STABLE. PT AT BEDSIDE AT BEGINNING OF SHIFT. PT IN BED AT THIS TIME. BUE AND BLE COOL. BLE +3 EDEMA. LUNGS CLEAR IN UPPER LOBES AND DIM IN LOWER LOBES. AROUND MIDNIGHT DURING THIS SHIFT, PT AWOKE AND AMBULATED TO BATHROOM. AT THIS TIME TOOK PT FOR A SHORT WALK IN THE HALLWAY AND MADE A STOP TO GET A STANDING WEIGHT. PT TOLERATED THIS WELL AND RETUNRED BACK TO BED. BED IN LOW POSITION, CALL LIGHT IN REACH AND PT DENIES ANY NEEDS AT THIS TIME. WILL CONTINUE TO MONITOR
[2018-11-03 04:43] LABS: Albumin, Blood 3.3 g/dL (3.4-5.0); Anion Gap 12 mmol/L (6-16); Blood Urea Nitrogen 74 mg/dL (8-24); Bun/Creatinine Ratio 37.9 (12.0-20.0); CO2, Blood 24 mmol/L (21-32); Calcium, Blood 8.5 mg/dL (8.5-10.1); Chloride, Blood 99 mmol/L (98-108); Creatinine, Blood 1.95 mg/dL (0.40-1.00); Glomerular Filtration Rate 26 (60-); Glucose, Blood 70 mg/dL (70-99); Phosphorus, Blood 4.3 mg/dL (2.5-4.9); Sodium, Blood 135 mmol/L (136-145)
[2018-11-03 05:55] LABS: BASOPHILS ABSOLUTE AUTO 0.01 K/mm3 (0.00-0.23); BASOPHILS PERCENT AUTO 0 % (0-2); EOSINOPHILS ABSOLUTE AUTO 0.06 K/mm3 (0.00-0.68); EOSINOPHILS PERCENT AUTO 1 % (0-6); Hematocrit 38.1 % (33.0-51.0); Hemoglobin 12.7 g/dL (11.5-16.0); IMMATURE GRAN ABSOLUTE AUTO 0.06 K/mm3 (0.00-0.10); IMMATURE GRAN PERCENT AUTO 1 % (0-1); LYMPHOCYTES ABSOLUTE AUTO 1.17 K/mm3 (0.84-5.20); LYMPHOCYTES PERCENT AUTO 13 % (21-46); MONOCYTES ABSOLUTE AUTO 0.92 K/mm3 (0.16-1.47); MONOCYTES PERCENT AUTO 10 % (4-13); Mean Corpuscular HGB 31.3 pg (26.0-34.0); Mean Corpuscular HGB Conc 33.3 g/dL (31.5-36.5); Mean Corpuscular Volume 94 fL (80-100); Mean Platelet Volume 11.4 fL (9.1-12.4); NEUTROPHILS PERCENT AUTO 75 % (41-73); NRBC ABSOLUTE 0.02 K/mm3 (0.00-0.02); NRBC Auto 0.2 /100 WBC (0.0-0.2); Platelet Count 83 K/mm3 (150-400); RDW Coefficient Variation 15.1 % (11.7-14.2); RDW Standard Deviation 49.2 fL (35.1-46.3); Red Blood Cell Count 4.06 M/mm3 (3.80-5.20); White Blood Cell Count 8.92 K/mm3 (4.00-11.30)
--- NOTE | 2018-11-03 05:58 | NUR ---
SHIFT SUMMARY PT PLEASANT, COOPERATIVE AND USES CALL LIGHT APPROPRIATELY. PT REMAINS A&O X4, VITAL SIGNS STABLE AND ASSESSMENT FINDINGS REMAIN UNCHANGED SINCE MORNING FINDINGS. PT WAS ABLE TO REST MOST OF SHIFT. PT WAS ABLE TO AMBULATE TO BATHROOM IN NIGHT NEEDED AND TOLERATED WELL. PT ALSO WENT FOR WALK IN HALLWAYS WITH STAFF. BED IN LOW POSITION, CALL LIGHT IN REACH AND PT DENIES ANY NEEDS AT THIS TIME. WILL CONTINUE TO MONITOR UNTIL HANDOFF TO DAYSHIFT RN.
--- NOTE | 2018-11-03 10:07 | NUR ---
BEGINNING OF SHIFT Assumed care at 0700. Report received from Mya SIERRA. Pt on room air. Atrial fibrillation per telemetry. Pt independent in room. Tolerates activity well. Pt requested to ambulate. Tolerated activity well. Bed in lowest position. Call light in reach. Pt denies need at this time.
--- NOTE | 2018-11-03 17:55 | NUR ---
SHIFT SUMMARY No acute changes since shift assessment. Pt has been in room visiting with her spouse for majority of shift. Pt independent in room. Will continue to closely monitor until care handoff and bedside report with oncoming RN.
--- NOTE | 2018-11-03 23:55 | NUR ---
PCU NIGHTSHIFT ASSUMED CARE OF PT SHAUNNA. 190. PT A&O X4, ASSESSMENT COMPLETED, VITAL SIGNS STABLE. EDEMA BLE +3. EXTREMITIES COOL. AT BEDSIDE AT SHIFT CHANGED, ABLE TO ANSWER ANY QUESTIONS. HEART RHYTHM REMAINS A. FIB AT THIS TIME AVERAGING 90'S. BED IN LOW POSITON, CALL LIGHT IN REACH AND PT DENIES ANY NEEDS AT THIS TIME. WILL CONTINUE TO MONITOR.
--- NOTE | 2018-11-04 02:06 | NUR ---
NOTE APPROXIMATELY 0158 PT CONVERTEDN TO NORMAL SINUS RHYTHM W/ 1ST DEGREE BLOCK. WITH HEART RATE IN 60'S AT THIS TIME. WILL CONTINUE TO MONITOR.
[2018-11-04 05:15] LABS: BASOPHILS ABSOLUTE AUTO 0.02 K/mm3 (0.00-0.23); BASOPHILS PERCENT AUTO 0 % (0-2); EOSINOPHILS ABSOLUTE AUTO 0.16 K/mm3 (0.00-0.68); EOSINOPHILS PERCENT AUTO 2 % (0-6); Hematocrit 39.6 % (33.0-51.0); Hemoglobin 13.1 g/dL (11.5-16.0); IMMATURE GRAN ABSOLUTE AUTO 0.08 K/mm3 (0.00-0.10); IMMATURE GRAN PERCENT AUTO 1 % (0-1); LYMPHOCYTES ABSOLUTE AUTO 2.32 K/mm3 (0.84-5.20); LYMPHOCYTES PERCENT AUTO 26 % (21-46); MONOCYTES ABSOLUTE AUTO 0.96 K/mm3 (0.16-1.47); MONOCYTES PERCENT AUTO 11 % (4-13); Mean Corpuscular HGB 31.3 pg (26.0-34.0); Mean Corpuscular HGB Conc 33.1 g/dL (31.5-36.5); Mean Corpuscular Volume 95 fL (80-100); NEUTROPHILS ABSOLUTE AUTO 5.27 K/mm3 (1.96-9.15); NEUTROPHILS PERCENT AUTO 60 % (41-73); NRBC ABSOLUTE 0.02 K/mm3 (0.00-0.02); NRBC Auto 0.2 /100 WBC (0.0-0.2); Platelet Count 77 K/mm3 (150-400); RDW Coefficient Variation 15.2 % (11.7-14.2); RDW Standard Deviation 50.4 fL (35.1-46.3); Red Blood Cell Count 4.19 M/mm3 (3.80-5.20); White Blood Cell Count 8.81 K/mm3 (4.00-11.30)
[2018-11-04 05:33] LABS: Albumin, Blood 3.3 g/dL (3.4-5.0); Albumin/Globulin Ratio 1.1 (0.8-1.8); Bilirubin, Total 1.2 mg/dL (0.1-1.0); Bun/Creatinine Ratio 37.5 (12.0-20.0); Calcium, Blood 8.6 mg/dL (8.5-10.1); Creatinine, Blood 1.68 mg/dL (0.40-1.00); Globulin, Blood 2.9 g/dL (2.2-4.0); Potassium, Blood 3.8 mmol/L (3.5-5.5); Total Protein, Blood 6.2 g/dL (6.4-8.2)
--- NOTE | 2018-11-04 06:05 | NUR ---
SHIFT SUMMARY PT PLEASANT, COOPERATIVE AND USES CALL LIGHT APPROPRAITELY. PT REMAINED A&O X4, ASSESSMENT FINDINGS REMAIN UNCHANGED FROM AM. VITAL SIGNS STABLE. PT WAS ABLE TO SLEEP FOR MOST OF SHIFT. APPROX. 0158 PT HEART RHYTM CONVERTED FROM A.FIB TO NORMAL SINUS RHYTHM W/ FIRST DEGREE BLOCK. PT REMAINED IN NORMAL SINUS SINCE THEN. NO CHANGES IN EXTREMITIES TEMPERATURE OR COLOR. BED IN LOW POSITION, CALL LIGHT IN REACH AND PT DENIES ANY NEEDS AT THIS TIME. WILL CONTINUE TO MONITOR UNTIL HANDOFF TO DAYSHIFT RN.
[2018-11-04] MEDS ORDERED: HYDR1TAB94 (15:05)
[2018-11-04] MEDS ORDERED: Once Daily1 EACH PO (15:06)
[2018-11-04] MEDS ORDERED: LORA.5 PO (15:08)
[2018-11-04] MEDS ORDERED: BUME2 PO (15:10)
[2018-11-04] MEDS ORDERED: METO25ER PO (15:12)
[2018-11-04] MEDS ORDERED: Micro-K10 MEQ PO (15:13)
[2018-11-04] MEDS ORDERED: MIRT15 PO (15:14)
--- NOTE | 2018-11-04 18:33 | NUR ---
DISCHARGE Pt discharged from unit at 1620. Discharge education provided to patient and . Dr Mcgarry provided pt's spouse with written prescriptions and reviewed new medications and discontined medications with patient. This RN also reviewed medications with the patient and spouse. Pt and spouse stated all questions were answered. Pt escorted out by Crystal COATES, via [employer].
[2018-11-05 10:08] LABS: HEPARIN INDUCED PLATELET AB 0.336 OD (0.000-0.400)
== END 2018-11-04 16:21 | disposition home or self-care (01) | DRG 291 ==
LOC: ER 09:54 → ERHOLD 10:30 → PCU 10:30
PROVIDERS: Family Medicine; Internal Medicine; Internal Medicine Cardiovascular Disease; Internal Medicine Endocrinology, Diabetes & Metabolism; ADMIT Internal Medicine
DX: I13.0 Hypertensive heart and chronic kidney disease with heart failure and stage 1 through stage 4 chronic kidney disease, or unspecified chronic kidney disease (principal); I50.21 Acute systolic (congestive) heart failure; J18.9 Pneumonia, unspecified organism; N17.9 Acute kidney failure, unspecified; E87.1 Hypo-osmolality and hyponatremia; N18.3 Chronic kidney disease, stage 3 (moderate); M06.9 Rheumatoid arthritis, unspecified; I34.0 Nonrheumatic mitral (valve) insufficiency; I48.2 Chronic atrial fibrillation; Z79.01 Long term (current) use of anticoagulants; I71.4 Abdominal aortic aneurysm, without rupture; I27.20 Pulmonary hypertension, unspecified; R74.0 Nonspecific elevation of levels of transaminase and lactic acid dehydrogenase [LDH]; I95.9 Hypotension, unspecified; D69.6 Thrombocytopenia, unspecified; I45.81 Long QT syndrome; F41.9 Anxiety disorder, unspecified; Z79.82 Long term (current) use of aspirin
CPT/HCPCS: 36415; 71046; 76705; 80048; 80053; 80061; 80069; 81001; 83735; 83880; 84300; 84450; 84460; 84484; 85025; 85730; 86022; 93005; 93010; 93306; 93922; 93931; 94660; 94762; 96372-59; 96374; 96375; 96376; 99285-25; J0456; J0696; J1644; J1650; J1940; J2405; J2765; J7030; J7040; J7050

== ENCOUNTER → 2018-10-25 | Outpatient (CLI) | payer MEDICARE, OTHER ==
[~2018-10-25] MED LIST changes: +Acetaminophen-1 EAC1 PO; +Amoxicillin500 M1; +BUME2 PO; +GABA300 PO; +HYDR1TAB94; +Hydromet Syrup473 ML PO; +INFLECTRA100 MG; +LORA.5 PO; +METO25ER PO; +MIRT15 PO; +Micro-K10 MEQ PO; +Once Daily1 EACH PO; +PREG50 PO
[2018-10-25 08:55] LABS: BASOPHILS ABSOLUTE AUTO 0.02 K/mm3 (0.00-0.23); BASOPHILS PERCENT AUTO 0 % (0-2); EOSINOPHILS ABSOLUTE AUTO 0.07 K/mm3 (0.00-0.68); EOSINOPHILS PERCENT AUTO 1 % (0-6); Hematocrit 35.7 % (33.0-51.0); Hemoglobin 12.5 g/dL (11.5-16.0); IMMATURE GRAN ABSOLUTE AUTO 0.04 K/mm3 (0.00-0.10); IMMATURE GRAN PERCENT AUTO 1 % (0-1); LYMPHOCYTES ABSOLUTE AUTO 0.84 K/mm3 (0.84-5.20); LYMPHOCYTES PERCENT AUTO 12 % (21-46); MONOCYTES PERCENT AUTO 11 % (4-13); Mean Corpuscular HGB 31.2 pg (26.0-34.0); Mean Corpuscular Volume 89 fL (80-100); Mean Platelet Volume 10.5 fL (9.1-12.4); NEUTROPHILS ABSOLUTE AUTO 5.39 K/mm3 (1.96-9.15); NEUTROPHILS PERCENT AUTO 75 % (41-73); Platelet Count 235 K/mm3 (150-400); RDW Coefficient Variation 13.9 % (11.7-14.2); RDW Standard Deviation 45.1 fL (35.1-46.3); Red Blood Cell Count 4.01 M/mm3 (3.80-5.20); White Blood Cell Count 7.16 K/mm3 (4.00-11.30)
[2018-10-25 09:13] LABS: Albumin, Blood 3.3 g/dL (3.4-5.0); Albumin/Globulin Ratio 0.9 (0.8-1.8); Bilirubin, Total 0.9 mg/dL (0.1-1.0); Bun/Creatinine Ratio 27.9 (12.0-20.0); Calcium, Blood 8.9 mg/dL (8.5-10.1); Creatinine, Blood 1.4 mg/dL (0.40-1.00); Globulin, Blood 3.6 g/dL (2.2-4.0); Potassium, Blood 4.4 mmol/L (3.5-5.5); Thyroid Stimulating Hormone 1.317 uIU/mL (0.360-4.800); Total Protein, Blood 6.9 g/dL (6.4-8.2); Troponin I 0.163 ng/mL (0.000-0.040)
== END | disposition home or self-care (01) ==
LOC: LAB EV 08:46 → LAB SHORT 08:46
PROVIDERS: General Practice
DX: I50.9 Heart failure, unspecified (principal); R53.81 Other malaise
CPT/HCPCS: 80053; 82550; 83880; 84443; 84484; 85025

== ENCOUNTER → 2018-11-06 | Day surgery (SDC) | payer MEDICARE, OTHER ==
[~2018-11-06] MED LIST changes: +Acetaminophen-1 EAC1 PO; +Amoxicillin500 M1; +BUME2 PO; +GABA300 PO; +HYDR1TAB94; +Hydromet Syrup473 ML PO; +INFLECTRA100 MG; +LORA.5 PO; +METO25ER PO; +MIRT15 PO; +Micro-K10 MEQ PO; +Once Daily1 EACH PO; +PREG50 PO
== END ==
LOC: ATC 00:27
DX: M05.79 Rheumatoid arthritis with rheumatoid factor of multiple sites without organ or systems involvement (principal); Z79.82 Long term (current) use of aspirin; E78.5 Hyperlipidemia, unspecified; Z79.899 Other long term (current) drug therapy

== ENCOUNTER 2018-12-31 06:55 | Day surgery (SDC) | payer MEDICARE, OTHER ==
[~2018-12-31] VITALS: Ht 154.9 cm; Wt 51.8 kg
[~2018-12-31 06:55] MED LIST changes: +BUME1 PO
--- NOTE | 2018-12-31 12:25 | NUR ---
2 CC AIR REMOVED FROM TR BAND. NO BLEEDING AT SITE
--- NOTE | 2018-12-31 13:48 | NUR ---
SUMMARY: PT HAD UNEVENTFUL POST PROCEDURE COURSE IN RECOVERY ROOM. TR BAND REMOVED AT 2 HOUR TARIQ PER PROCEDURE. NO BLEEDING OR SWELLING NOTED. WHITE ARM BOARD APPLIED TO WRIST FOR SECURITY OF SITE. CMS INTACT TO RIGHT HAND AFTER APPLICATION. CAP REFILL BRISK. GROIN SITE REMAINED STABLE THROUGHOUT RECOVERY. NO BLEEDING OR SWELLING NOTED. LEG PWD. PEDAL PULSES PRESENT. REVIEWED DISCHARGE INSTRUCTIONS WITH PATIENT AND , BOTH OF WHOM VERBALIZE UNDERSTANDING OF ALL INSTRUCTIONS GIVEN. IV D/C TIP INTACT AND PATIENT DISCHARGED HOME VIA WITH TO DRIVE HER.
--- NOTE | 2018-12-31 14:02 | NUR ---
OF NOTE - RIGHT WRIST SITE MONITORING THROUGHOUT RECOVERY WITH RIGHT GROIN SITE, REMAINED STABLE THE ENTIRE TIME WITH NO BLEEDING OR SWELLING.
== END 2018-12-31 13:00 | disposition home or self-care (01) ==
LOC: MHTC 06:55
DX: I08.3 Combined rheumatic disorders of mitral, aortic and tricuspid valves (principal); I77.810 Thoracic aortic ectasia; I70.0 Atherosclerosis of aorta; I48.0 Paroxysmal atrial fibrillation; E78.1 Pure hyperglyceridemia; I13.0 Hypertensive heart and chronic kidney disease with heart failure and stage 1 through stage 4 chronic kidney disease, or unspecified chronic kidney disease; I50.22 Chronic systolic (congestive) heart failure; N18.9 Chronic kidney disease, unspecified; D69.6 Thrombocytopenia, unspecified; R79.89 Other specified abnormal findings of blood chemistry; I27.20 Pulmonary hypertension, unspecified; M06.9 Rheumatoid arthritis, unspecified; F41.9 Anxiety disorder, unspecified; Z79.82 Long term (current) use of aspirin; Z79.899 Other long term (current) drug therapy
CPT/HCPCS: 93312; 93325; 93456; 99152; 99153; C1769; C1894; J1644; J2250; J3010; J7030; J7040; Q9967

== ENCOUNTER 2019-01-06 01:18 | Emergency (ER) | payer MEDICARE, OTHER ==
[~2019-01-06] VITALS: Ht 160 cm; Wt 45.4 kg
== END 2019-01-06 01:41 ==
LOC: ER 01:18
DX: I46.9 Cardiac arrest, cause unspecified (principal); Z79.82 Long term (current) use of aspirin; Z79.899 Other long term (current) drug therapy; I50.9 Heart failure, unspecified; I48.91 Unspecified atrial fibrillation
CPT/HCPCS: 31500; 31720; 92950; 96374-59; 96375-59; 99285-25; J0171; J0282; J7060